=== PATIENT | male | born 1945 | race Caucasian/White ===

== ENCOUNTER 2016-04-13 14:30 | Emergency (ER) | payer MEDICARE, OTHER ==
[2016-04-13] MEDS ORDERED: HEPARIN 20,000 UNIT/500 ML *DVT/PE IV SCH (17:00)
[2016-04-13] MEDS ORDERED: HEPARIN 5,000 UNITS/ML **DVT/PE IV PRN (17:00)
== END 2016-04-13 19:20 | disposition other institution (70) ==
LOC: ER 14:30
DX: I82.412 Acute embolism and thrombosis of left femoral vein (principal); I82.432 Acute embolism and thrombosis of left popliteal vein; I82.442 Acute embolism and thrombosis of left tibial vein; Z79.899 Other long term (current) drug therapy; F17.210 Nicotine dependence, cigarettes, uncomplicated
CPT/HCPCS: 36415; 80053; 85025; 85610; 85730; 93971; 96374; 99284; J1644